=== PATIENT | male | born 1945 | race Caucasian/White ===

== ENCOUNTER 2025-05-27 06:51 | Day surgery (SDC) | payer MEDICARE, SELFPAY ==
--- NOTE | 2025-05-24 07:39 | EXP.HP ---
History of Present Illness *Admission Date: 05/27/25 *History of present illness: Mr. Griffith is a 79-year-old gentleman who is here for follow-up screening/surveillance colonoscopy. He does have a history of chronic outlet dysfunction constipation. He has improved with pelvic floor PT exercises which he is trying to do regularly. He does not have access to pelvic floor physical therapist locally that offers biofeedback. He also is on Lubiprostone daily. He does takes a mixture of MiraLAX, Konsyl and stimulant laxatives intermittently. Overall, he is doing much better with improved defecation but still has bowel in consistency with loose to hard stools. The patient reports no rectal bleeding, abdominal pain or weight loss. He does have a strong family history of colon cancer in his sister had colon cancer in her 60s. 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 His colonoscopy and September 2020 revealed 2 small polyps (tubular adenomas x 2 and his colonoscopy in September 2021 revealed 2 small polyps (small tubular adenomas x 2). His last colonoscopy in January 2023 revealed 4 small polyps (small tubular adenomas x 4). Because of his strong family history and history of advanced adenomatous colon polyps, I did recommend 2-year surveillance interval. [facility] Disclaimer: The information contained in this section may have been updated after the patient was seen, as this information can be updated by other users. Medical History Peripheral neuropathy Chronic venous insufficiency SVT (supraventricular tachycardia) HTN (hypertension) Heart disease Colon polyps Back pain Surgical History Hx of inguinal hernia surgery History of total right knee replacement History of back surgery History of prostate surgery Family History Sister Colon cancer Social History (Updated 05/27/25 @ 07:58 by Jenn Lang CRNA) Smoking Status: Never smoker alcohol intake: never substance use type: unknown current occupational status: retired Travel in the last 8 weeks?: Inside the [place] caffeine: No Have you lived/traveled outside [place] in past 30 days?: No Contact w/someone who lives/traveled outside [place] past 30 days?: No Exposure to someone with infectious disease in past 14 days?: No Do you have a fever (greater than 100.4 F or 38 C)?: No Have you tested positive for COVID-19?: No Exposed to someone with COVID-19 in past 14 days?: No Do you have a sore throat?: No Do you have a cough?: No Do you have any weakness?: No Do you have any diarrhea?: No Are you experiencing any unusual bleeding?: No Do you have any muscle aches/pain?: No Do you have any abdominal pain?: No Are you experiencing loss of taste or smell?: No Other Medical History Have you received the Pneumonia Vaccine: Yes Review of Systems Review of Systems Review of systems (narrative): Negative *Cardiovascular Comments: Negative *Gastrointestinal Comments: Negative *Genitourinary Comments: Negative *Musculoskeletal Comments: Negative *Neurologic Comments: Negative Meds Home Medications and Allergies Home Medications ?Medication ?Instructions ?Recorded ?Confirmed ?Type amlodipine 10 mg tablet 10 mg PO DAILY 06/13/24 05/24/25 History cholecalciferol (vitamin D3) 25 25 mcg PO DAILY 06/13/24 05/24/25 History mcg (1,000 unit) capsule finasteride 5 mg tablet 5 mg PO DAILY 06/13/24 05/24/25 History hydrochlorothiazide 12.5 mg tablet 12.5 mg PO DAILY 06/13/24 05/24/25 History mecobalamin (vitamin B12) 1,000 1,000 mcg PO DAILY 06/13/24 05/24/25 History mcg chewable tablet (B12 Active) multivitamin (Daily Multi-Vitamin 1 tab PO DAILY 06/13/24 05/24/25 History tablet) omega-3 fatty acids 1,000 mg 1,000 mg PO DAILY 06/13/24 05/24/25 History capsule oxybutynin chloride 10 mg 10 mg PO DAILY 06/13/24 05/24/25 History tablet,extended release 24 hr pregabalin 75 mg capsule 75 mg PO BID 06/13/24 05/24/25 History ramipril 10 mg capsule 10 mg PO BID 06/13/24 05/24/25 History tadalafil 5 mg tablet 5 mg PO DAILY 06/13/24 05/24/25 History lubiprostone 24 mcg capsule 24 mcg PO DAILY 09/12/24 05/24/25 History aspirin 81 mg tablet,delayed 81 mg PO DAILY 03/13/25 05/24/25 History release (Adult Low Dose Aspirin) pyridoxine (vitamin B6) 100 mg 100 mg PO DAILY 05/24/25 05/24/25 History tablet (Vitamin B-6) New Prescriptions to Start Prescriptions: Allergies Allergy/AdvReac Type Severity Reaction Status Date / Time No Known Allergies Allergy Verified 05/24/25 10:26 Exam *Routine HEENT Exam Head: Present normocephalic Eye: Present EOMI and PERRL ENT: Present mucous membranes moist *Routine Neck Exam Neck: Present supple *Routine Respiratory Exam Respiratory: Present CTA bilaterally *Routine Cardiovascular Exam Cardiovascular: Present RRR *Routine Abdominal Exam Abdominal: Present soft and normoactive bowel sounds; Absent tenderness *Routine Rectal Exam Rectal:: deferred *Routine Genitalia Exam Genitalia:: deferred *Routine Extremities Exam Extremities: Absent cyanosis, clubbing or edema *Routine Skin Exam Skin: Present warm; Absent rash *Routine Neurological Exam Neurological: Present alert and oriented X3 Assessment and Plan *Assessment and plan (1) Personal history of adenomatous and serrated colon polyps: Status: Acute Category: Medical Code(s): Z86.0101 - Personal history of adenomatous and serrated colon polyps (2) Family history of colon cancer: Status: Acute Category: Medical Code(s): Z80.0 - Family history of malignant neoplasm of digestive organs (3) Screening for colon cancer: Status: Acute Category: Medical Code(s): Z12.11 - Encounter for screening for malignant neoplasm of colon Plan A/P: 1. Personal history of adenomatous colon polyps and family history of colon cancer with prior advanced adenoma (tubulovillous adenoma with high-grade dysplasia) is the preprocedural diagnosis. The patient will be anesthetized/sedated using MAC sedation. The patient has been seen and examined. Cardiac and lung assessment prior to the examination is stable. Proceed with planned screening/surveillance colonoscopy.
[2025-05-24 10:37] VITALS: BMI 27.5
--- NOTE | 2025-05-27 06:53 | P.PCN_ITS ---
[facility] Procedure Note Date: 05/27/25 Time: 08:44 Procedure Note:: Colonoscopy Procedure Report: Colonoscopy Endoscopist: Ron Begum II, MD Referring physician: Leticia Paez PA-C, [address] [place] [address] Date of Procedure: May 27, 2025 Equipment: Olympus [id number] adult colonoscope Sedation: MAC sedation Indication: Mr. Griffith is a 79-year-old gentleman who is here for follow-up screening/surveillance colonoscopy. He does have a history of chronic outlet dysfunction constipation. He does have chronic lumbosacral back pain with prior surgery and recent epidurals. He has improved with pelvic floor PT exercises which he is trying to do regularly. He does not have access to pelvic floor physical therapist locally that offers biofeedback. He also is on Lubiprostone daily which has helped. He does takes a mixture of MiraLAX, Konsyl and stimu lant laxatives intermittently. Overall, he is doing much better with improved defecation but still has bowel in consistency with loose to hard stools. The patient reports no rectal bleeding, abdominal pain or weight loss. He does have a strong family history of colon cancer and his sister had colon cancer in her 60s. 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 His colonoscopy and September 2020 revealed 2 small polyps (tubular adenomas x 2 and his colonoscopy in September 2021 revealed 2 small polyps (small tubular adenomas x 2). His last colonoscopy in January 2023 revealed 4 small polyps (small tubular adenomas x 4). Because of his strong family history and history of advanced adenomatous colon polyps, I did recommend 2-year surveillance interval. Procedure: Prior to the procedure, a history and physical exam was performed, and patient's medications and allergies were reviewed. The risks, benefits and alternatives of the sedation and procedure were discussed with the patient. All questions were answered and informed consent was obtained. The patient was brought to the procedure room. Patient identification and proposed procedure were verified by the physician and the nurse. The patient was placed in a left lateral decubitus position and the scope was passed under direct vision. Throughout the procedure, the patient's blood pressure, pulse, and oxygen saturations were monitored continuously. The colonoscopy was accomplished without difficulty. The patient tolerated the procedure well. Findings: On digital rectal examination there was normal rectal tone. There were no external hemorrhoids. The prostate was firm with some nodularity in the upper margin of the prostate. The colonoscope was introduced through the anal canal to the rectum and advanced to the cecum. The ileocecal valve and appendiceal orifice were identified. The scope was advanced a short distance into the ileum which appeared grossly normal. The scope was then withdrawn into the colon. The cecum, ascending and transverse colon and mucosa were grossly normal. There were scattered diverticuli throughout the descending and sigmoid colon (LEFT colon). The rectum itself was normal. Upon retroflexion within the rectum there were grade 2 internal hemorrhoids. The preparation was excellent throughout with [place] Preparation Score of 9. The cecal time was 12 minutes. Impression: 1. Left-sided diverticulosis 2. Grade 2 internal hemorrhoids Plan: I would continue the bowel regimen with lubiprostone and pelvic floor PT e xercises. I do not feel that the patient will require further screening/surveillance colonoscopy.
[2025-05-27] MEDS: LACTATED RINGERS 1000ML 1,000 ML 50 ML IV (07:43)
[2025-05-27 07:44] VITALS: BP 164/77; PULSE 61; RESP 20; TEMP 36.9; O2SAT 94
--- NOTE | 2025-05-27 07:56 | EXP.ANES.CKL ---
[facility] Disclaimer: The information contained in this section may have been updated after the patient was seen, as this information can be updated by other users. Medical History Peripheral neuropathy Chronic venous insufficiency SVT (supraventricular tachycardia) HTN (hypertension) Heart disease Colon polyps Back pain Surgical History Hx of inguinal hernia surgery History of total right knee replacement History of back surgery History of prostate surgery Family History Sister Colon cancer Social History Smoking Status: Never smoker alcohol intake: never substance use type: unknown current occupational status: retired Travel in the last 8 weeks?: Inside the [place] caffeine: No [facility] Anesthesia Checklist Patient Identification Patient Identification: Arm Band and Verbal (Name & ) Structural Data Admitted From: Home Planned Operative Procedure/s: colonscopy Consent for Planned Operative Procedure(s) Verified: Yes Verified Documents: Surgical Consent and History and Physical NPO Status Verified Time NPO: 00:00 Additional verifications Anesthesia Reactions: No Previous Colonoscopy: Yes Airway Assessment Mallampati Score:: Class II Dentition: Good Dentition Neurological Assessment Level of Consciousness: Awake, Alert and Appropriate Hx Seizures: No Numbness or tingling in extremities: No Anesthesia Plan Anesthesia Risk discussed: Yes ASA Class: II Anesthesia Type: MAC
[2025-05-27 08:48] VITALS: BP 115/65; PULSE 53; RESP 16; TEMP 36.6; O2SAT 99
[2025-05-27 08:58] VITALS: BP 114/63; PULSE 54; RESP 18; O2SAT 99
[2025-05-27 09:08] VITALS: BP 120/63; PULSE 56; RESP 16; O2SAT 100
[2025-05-27 09:18] VITALS: BP 130/61; PULSE 56; RESP 16; O2SAT 100
== END 2025-05-27 09:18 | disposition home or self-care (01) ==
PROVIDERS: Visit Provider Internal Medicine Gastroenterology
PROC: 0DJD8ZZ Inspection of Lower Intestinal Tract, Via Natural or Artificial Opening Endoscopic (ICD-10-PCS; CPT 45378; principal; 2025-05-27 08:30)
DX: Z12.11 Encounter for screening for malignant neoplasm of colon (principal); K57.30 Diverticulosis of large intestine without perforation or abscess without bleeding; K64.1 Second degree hemorrhoids; K59.09 Other constipation; I10 Essential (primary) hypertension; Z86.0101 Personal history of adenomatous and serrated colon polyps; Z80.0 Family history of malignant neoplasm of digestive organs; Z79.82 Long term (current) use of aspirin
CPT/HCPCS: 45378; J2003; J2704; J7120